=== PATIENT | female | born 1950 | race Caucasian/White ===

== ENCOUNTER → 2018-11-28 15:09 | Outpatient (CLI) | payer MEDICARE, OTHER, SELFPAY ==
[2017-04-07 23:59] VITALS: BMI 23.5
--- NOTE | 2018-11-28 16:00 | RAD_ITS ---
STUDY: X-RAY CHEST REASON FOR EXAM: Female, 67 years old. Cough TECHNIQUE: PA and lateral views of the chest COMPARISON: X-Ray Chest April 08, 2017 FINDINGS: Left chest tunneled catheter is present terminating at the cavoatrial junction. Mild right greater than left lower lung zone infiltrates are present. There is a moderate right effusion which appears loculated. There is a small to moderate left effusion. There is no pneumothorax. The heart is normal in size. The visualized osseous structures are within normal limits. RAD/Chest PA and Lateral IMPRESSION: Right greater left lower lung zone infiltrates with moderate right effusion which appears loculated, and small to moderate left effusion. Electronically Signed: Arnol Ruvalcaba, at 16:30 EDT Tel , Service support ,
== END ==
PROVIDERS: Family Provider Family Medicine; PCP Family Medicine; Referring Provider Family Medicine; Visit Provider Family Medicine
DX: R05 Cough (principal); R50.9 Fever, unspecified
CPT/HCPCS: 71046

== ENCOUNTER 2019-03-25 16:34 | Observation (INO) | payer MEDICARE, OTHER, SELFPAY ==
[2017-04-07 23:59] VITALS: BMI 23.5
[2019-03-25] VITALS (15 sets, daily range): BP systolic 172–216; BP diastolic 83–111; PULSE 77–107; RESP 17–26; TEMP 36.8–37; O2SAT 87–98; BMI 21.9; BMI 21.6; BMI 21.0
--- NOTE | 2019-03-25 16:57 | CT_ITS ---
STUDY: CTA CHEST REASON FOR EXAM: Female, 68 years old. Hypoxia. Shortness of breath. Current lung cancer with chemotherapy 12 days ago. History of bilateral breast cancer. RADIATION DOSAGE (If Supplied By Facility): CTDIvol = ( 5.82 ) mGy, DLP = ( 238.05 ) mGycm TECHNIQUE: The examination was performed with the intravenous administration of IV 75mL Isovue-370 75ML. Post-processing of the angiographic images was performed, with multiplanar reformation and 3D reconstruction. Individualized dose optimization techniques were used for this CT. COMPARISON: None. FINDINGS: Left jugular Port-A-Cath with its catheter tip in the superior vena cava. Normal enhancement of the main pulmonary artery and right and left pulmonary arteries. Normal enhancement of the bilateral peripheral pulmonary arteries. There is no demonstrated pulmonary embolism. Normal thoracic aorta and visualized great vessels. There is no demonstrated aortic dissection. Normal heart and pericardium. There are calcifications of the coronary arteries. Normal mediastinum. Normal hilar regions. Normal visualized trachea and bronchi. The lungs are well expanded. There is a large left pleural effusion with atelectatic change is of the left lower lobe. Atelectatic changes of the lingula are also noted. The possibility of underlying mass cannot be ruled out. There is a vague infiltrate laterally in the left upper lobe. There are multiple nodular densities throughout the right lung. The largest, in the left lower lobe is pleural-based and measures 3.2 x 2.0 x 3.1 cm. There is a small right pleural effusion with subsegmental atelectasis. There are soft tissue densities in both breasts. No visualized axillary lymphadenopathy. The chest wall soft tissues are otherwise unremarkable. There is no visualized fracture. There are degenerative changes of the thoracolumbar spine. There are sclerotic foci in the left lateral 10th rib and a linear distribution. No other areas of sclerosis are noted. Normal visualized upper abdomen. CT/CTA Chest W/WO Contrast IMPRESSION: 1. No evidence of pulmonary embolus. 2. No aortic dissection or aneurysm. 3. Large left pleural effusion and with lingular and lower lobe atelectasis. 4. Patchy infiltrate in the left upper lobe. 5. Multiple nodular densities throughout the right lung with small pleural effusion. 6. Linear array of sclerosis along the left 10th rib of uncertain important etiology. No other evidence of sclerotic or lytic lesions are seen. Electronically Signed: Kd Nieves DO at 18:50 EST Tel [phone], Service support ,
--- NOTE | 2019-03-25 16:58 | EKG12_ITS ---
Test Reason : SOB Blood Pressure : / mmHG Vent. Rate : 097 BPM Atrial Rate : 097 BPM P-R Int : 128 ms QRS Dur : 080 ms QT Int : 336 ms P-R-T Axes : 034 022 088 degrees QTc Int : 426 ms Normal sinus rhythm Minimal voltage criteria for LVH, may be normal variant Nonspecific T wave abnormality Abnormal ECG Confirmed by NIRANJAN CUNNINGHAM, DILIA ([id number]), marketing editor EVERARDO CLARK ([id number]) on 03/31/2019 2:19:05 PM Referred By: Poonam Haq Confirmed By:DILIA UREÑA MD
[2019-03-25 17:22] LABS: Absolute Lymphocyte Count 0.77 X10^3/uL (0.83-4.51); Absolute Neutrophil Count 1.6 X10^3/uL (2.0-7.7); Basophil# 0.04 X10^3/uL; Basophil% 1.2 % (0-1); Eosinophil# 0.03 X10^3/uL; Eosinophils% 0.9 % (0-5); Hematocrit 39.1 % (37-47); Hemoglobin 12.7 g/dL (12.0-15.0); Lymphocyte # 0.77 X10^3/ul (4.0); Lymphocyte % 22.4 % (19-41); Mean Corp Hgb Conc 32.5 g/dL (32-36); Mean Corpuscular Hgb 28.7 pg (27.0-32.0); Mean Corpuscular Volume 88.3 fL (81-99); Mean Platelet Vol. 9.4 fl (6.2-12.0); Monocyte# 0.99 X10^3/uL; Monocyte% 28.8 % (0-10); NRBC Flagged by Analyzer 0 % (0-5); Neutrophil % 46.4 % (47-70); Platelet Count 285 K/mm3 (150-450); RBC Distribution Width CV 15.9 % (11.6-14.6); RBC Distribution Width SD 51.1 fl (35.1-43.9); Red Blood Count 4.43 M/mm3 (4.2-5.4); White Blood Count 3.4 K/mm3 (4.4-11.0)
[2019-03-25 17:44] LABS: Anion Gap 5 (5-15); BUN 17 mg/dL (7-18); BUN/Creat Ratio 25.6 RATIO (10-20); Chloride 103 mmol/L (98-107); Creatinine, Serum 0.66 mg/dL (0.55-1.02); EST Glomerular Filtration Rate 93 mL/min (>60); Est Glom Filt Rate - Afr Amer 113 mL/min (>60); Glucose 102 mg/dL (74-106); Potassium 3.9 mmol/L (3.5-5.1); Sodium Level 136 mmol/L (136-145)
[2019-03-25] MEDS: 0.9% Normal Saline 1,000 ML 150 ML IV (17:45)
--- NOTE | 2019-03-25 17:47 | HP.PCM_ITS ---
Problem List (1) Hypoxia Status: Acute (2) Exertional dyspnea Status: Acute (3) Breast cancer Status: Chronic Qualifiers: Laterality: bilateral (4) Heart murmur, systolic Status: Chronic Comment: Suspect aortic valve murmur (5) Hypertension Status: Chronic Qualifiers: Hypertension type: essential hypertension Qualified Code(s): I10 - Essential (primary) hypertension (6) Thrombocytopenia Status: Chronic History of Present Illness Date of Admission: 03/25/19 Chief Complaint: Dyspnea, increased, hypoxia The patient is a 68 y/o F w/ PMHx: HTN, Chronic Thrombocytopenia, Valvular Heart Disease, Known Breast Cancer and Lung CA with ongoing Chemotherapy w/ Chronic dry cough, last 12 days prior, following w/ Oncology in [place] who presents to the [facility] ED on 03/25/19 with history of progressively worsening dyspnea, especially with any exertional attempts requiring her to drive to her mailbox instead of walk starting this past Saturday with ongoing stable chronic dry cough unchanged from prior with no recent URI symptoms, denied fevers or chills prompting ED presentation. Work-up in the ED included T 98.3, heart rate 107, BP 194/108, respiratory rate 26, initially 87% with improvement to 95% on 2 L nasal cannula, CBC with WBC 3.4, hemoglobin 12.7, platelet 285 with no obvious left shift, unremarkable BMP, troponin less than 0.015, CTPA obtained per ED secondary to concerns for possible PE given history and pending at the time of evaluation as patient initially very reticent to have this performed but following discussions with hospitalist physician was amenable to having this testing obtained. In the ED patient administered normal saline. Discussed possible findings of CT with patient, i.e. effusion versus acute pulmonary embolus with possible interventions including thoracenteses and anticoagulant therapy if needed. Past Medical History Past Medical History (Chronic Problems): Chronic Problems Breast cancer (Chronic) Hypertension (Chronic) Heart murmur, systolic (Chronic) Suspect aortic valve murmur Thrombocytopenia (Chronic) Allergies amoxicillin Allergy (Verified 03/25/19 16:38) Rash clavulanic acid Allergy (Verified 03/25/19 16:38) Rash Home Medications: Ambulatory Orders Medication Instructions Recorded Cholecalciferol (VIT D3) [Vitamin 2,000 unit PO DAILY 01/13/16 D3] Lisinopril 20 mg PO DAILY 01/13/16 Metoprolol Tartrate [Lopressor 25 mg PO BID #60 tablet 08/26/16 (beta humberto)] Ubidecarenone [Co Q-10] 10 mg PO DAILY 04/07/17 Vit B Comp No.3/Folic/C/Biotin 1 each PO DAILY 04/07/17 [Acquisition Marketing Coordinator-Yayo Rx Tablet] Vancomycin [Vancocin] 125 mg PO Q6H #56 capsule 04/09/17 Surgical History: - - Port placement. Psychiatric History: No pertinent psych hx PRESERVATIONIST History: No pertinent PRESERVATIONIST history Lives: Alone Smoking Status: Never smoker Tobacco Use: Non-smoker Alcohol: None Drugs: None - *Family History Maternal History Items: Hypertension Paternal History Items: Heart Disease Sibling History Items: Cancer - sister with breast CA Review of Systems Constitutional: Reports: Malaise, Weakness, Fatigue. Denies: Anorexia, Chills, Fever, Weight Change HEENT: Denies: Head Aches, Sinus Congestion, Sinus Drainage Cardiovascular: Denies: Chest Pain, Chest Pressure, Chest Tightness, Heaviness, Light Headedness, Orthopnea, Palpitations, Syncope Respiratory: Reports: Cough, Shortness of Breath, Shortness of breath at rest, Shortness of breath upon exertion. Denies: Sputum production, Wheezing Gastrointestinal: Denies: Abdominal Pain, Nausea, Vomiting Genitourinary: Denies: Dysuria Musculoskeletal: Reports: Joint Pain. Denies: Joint Tenderness Skin: Denies: Rash, Wounds Neurological: Denies: Numbness, Tingling, Focal weakness Psychiatric: Denies: Anxiety, Depression, Homicidal Ideations, Suicidal Ideations Hematologic/ Lymphatic: Reports: Easy Bruising, Easy Bleeding VTE Information - Inpt Only VTE Present on Admission: No VTE Mechan Device Prophylaxis: SCD's VTE Pharm Prophylaxis ordered?: Yes Patient Problems: Active and Suspected Problems Hypoxia (Acute) Exertional dyspnea (Acute) Subjective: Patient seated upright in ED bed, denies any acute complaints at this time, denies chest pain, notes dyspnea primarily with exertion. Objective: Physical Examination: General: awake, alert, oriented x 3 and cooperative, seated upright in the ED bed, no acute distress, notes improved with oxygen supplementation. Skin: normal color, turgor, no icterus, cyanosis. HEENT: AT/NC, EOMI, PERRLA, mildly dry MM, no carotid bruits or JVD noted. Lungs: Diminished breath sounds, greater bilateral bases, mild effort, no obvious rales, rhonchi or wheezing. Heart: Regular rate and rhythm; no gallop, rub audible, notable SM. Abdomen: soft, NTTP, ND, normal BS, no HSM. Extremities: no cyanosis, clubbing, or edema. Neurological: patient awake, alert, oriented x 3; cognitive function intact; pupils equally reactive to light and accomodation; cranial nerves II-XII grossly normal, moving all 4 extremities, no focal deficits, strength moderately to severely global decrease secondary to acute presentation with hypoxia with exertion. Psychiatric: affect appears fatigued, no acute evidence of depressive or anxiety feelings. - Physical Exam Vitals/I&O's: Vital Signs Temp Pulse Resp BP Pulse Ox 98.3 F 94 20 H 172/101 H 95 03/25/19 16:35 03/25/19 17:46 03/25/19 17:46 03/25/19 17:46 03/25/19 17:46 Oxygen Flow Rate (L/min) 2 Oxygen Delivery Method Nasal Cannula Weight: 128 lb Body Mass Index (BMI) 21.9 Laboratory Results 03/25/19 17:10: WBC 3.4 L, RBC 4.43, Hgb 12.7, Hct 39.1, MCV 88.3, MCH 28.7, MCHC 32.5, RDW Std Deviation 51.1 H, RDW Coeff of Justice 15.9 H, Plt Count 285, MPV 9.4, Immature Gran % (Auto) 0.300, Neut % (Auto) 46.4 L, Lymph % (Auto) 22.4, Beauregard % (Auto) 28.8 H, Eos % (Auto) 0.9, Baso % (Auto) 1.2 H, Absolute Neuts (auto) 1.6 L, Absolute Lymphs (auto) 0.77 L, Nucleated RBC % 0 03/25/19 17:10: Sodium 136, Potassium 3.9, Chloride 103, Carbon Dioxide 28.0, Anion Gap 5, BUN 17, Creatinine 0.66, Estim Creat Clear Calc 45.20, Est GFR (MDRD) Af Amer 113, Est GFR (MDRD) Non-Af 93, BUN/Creatinine Ratio 25.6 H, Glucose 102, Calcium 9.0, Troponin I < 0.015 Current Medications Sodium Chloride () 1,000 mls @ 150 mls/hr IV .Q6H40M COUNTS INCLUDE 234 BEDS AT THE [facility] Last Admin: 03/25/19 17:45 Dose: 150 mls/hr Documented by: Assessment/Plan All Active Problems Hypoxia (Acute) Exertional dyspnea (Acute) Cellulitis (Ruled-out) Pneumonia (Ruled-out) Fever (Acute) CAP (community acquired pneumonia) (Ruled-out) C. difficile diarrhea (Acute) The patient is a 68 y/o F w/ PMHx: HTN, Chronic Thrombocytopenia, Valvular Heart Disease, Known Breast Cancer and Lung CA with ongoing Chemotherapy w/ Chronic dry cough, last 12 days prior, following w/ Oncology in [place] who presents to the [facility] ED on 03/25/19 with history of progressively worsening dyspnea, especially with any exertional attempts requiring her to drive to her mailbox instead of walk starting this past Saturday with ongoing stable chronic dry cough unchanged from prior. (1) Exertional dyspnea, hypoxia, unclear specific etiology: Patient with onset dyspnea, worse with exertion starting this prior Saturday with no concurrent URI symptoms nor chest pain. Work-up in the ED included T 98.3, heart rate 107, BP 194/108, respiratory rate 26, initially 87% with improvement to 95% on 2 L nasal cannula, CBC with WBC 3.4, hemoglobin 12.7, platelet 285 with no obvious left shift, unremarkable BMP, troponin less than 0.015, CTPA obtained per ED secondary to concerns for possible PE given history and pending at the time of evaluation as patient initially very reticent to have this performed but following discussions with hospitalist physician was amenable to having this testing obtained. Will admit to the PCU, maintain on telemetry, awaiting CTPA results, maintain on oxygen with wean as tolerated to room air although suspect may need oxygenation testing with discharge to home on supplementation, continue ATC duonebs, PRN albuterol, HOB, IS parameters. If CTPA notable for acute pulmonary embolism will initiate therapeutic Lovenox. If notable pleural effusion as examination with no rales, crackles but diminished bilateral bases with mild effort would plan request for thoracentesis with coags to be obtained and hold on chemoprophylaxis. (2) Known breast cancer and lung cancer: Patient with ongoing chemotherapy, last 12 days prior, on 2 agents, following with oncology in [place], magnesium and phosphorus pending, patient notes she had plan to follow-up this coming Saturday in [place] and is eager to be able to discharge in time to make this visit. (3) Hypertension: Continue home regimen including lisinopril, metoprolol, PRN hydralazine. (4) Valvular heart disease: Suspected with routine ECHO, none noted in [facility]. (5) History C. difficile: Prior history, if any antibiotic therapy necessity presents with plan on initiation of aggressive lactobacillus regimen concurrently. (6) Chronic thrombocytopenia: Admission platelet 285, prior admissions with platelets 90-150, will trend. (7) DVT Prophylaxis: SCDs, Lovenox pending CT chest results and if evidence of pulmonary emboli will transition to therapeutic Lovenox, will defer immediately upon current presentation as may need thoracentesis. (8) CODE status: Patient notes that her son in [place] is her healthcare power of civil attorney. She notes that she has a will but not sure if she has a living will. Encouraged her to set up a living will. Discussed CODE status at length including difference between FULL code, DNR-CCA and DNR-CC status. Following discussions about the differences in these status, requested Full Code status. Advanced Care Planning Face to Face Time: 16 minutes. Code Visit OBSV E&M: 97171 Initial observation care L3 Procedures: 09433 Advncd Care Plan 30 Min
--- NOTE | 2019-03-25 18:36 | ED.VIS.DYS ---
History of Present Illness Informant: Patient Onset: Days - 12 days Activity at onset: Exertion, Light Activity Timing: Continuous Quality: Dyspnea on exertion Current Severity: Severe Maximum Severity: Severe Worsened by: Exertion Relieved by: Nothing Associated Symptoms: Cough Chest Pain: None Narrative: 68-year-old female currently being treated with chemotherapy for breast cancer and lung cancer presents with 12 days of dry nonproductive cough and worsening dyspnea on exertion. It got to the point today where she had to drive herself to get her mail because she feels short of breath with just taking several steps across her home. She has not had hemoptysis or fever. No chest pain. No vomiting or diarrhea. No lightheadedness or dizziness. Last chemotherapy 12 days ago. She receives her treatment for cancer in [place]. No leg pain or swelling. No orthopnea. PE Risk Factors: Cancer Prior similar symptoms: Yes Recent Illness/Hospitalization: Yes <Fransisco Khalil - Last Filed: 03/25/19 18:36> <Jacqueline Oviedo - Last Filed: 03/25/19 19:57> Chief Complaint: Shortness of Breath Past Medical History Prior records reviewed: Yes Past Medical History: - - breast cancer and lung cancer, HTN, thrombocytopenia Surgical History: - - Port placement. Lives: Alone Smoking Status: Never smoker Alcohol: None Drugs: None - Family History Maternal Family History: Reports: Hypertension Paternal Family History: Reports: Heart Disease Sibling Family History: Reports: Cancer - sister with breast CA <Fransisco Khalil - Last Filed: 03/25/19 18:36> <Jacqueline Oviedo - Last Filed: 03/25/19 19:57> - Allergies and Home Meds Allergies/Adverse Reactions: Allergies amoxicillin Allergy (Verified 03/25/19 16:38) Rash clavulanic acid Allergy (Verified 03/25/19 16:38) Rash Review of Systems All systems negative except as indicated General: Denies: Chills, Fever Eyes: Denies: Visual changes - bilaterally, Diplopia ENT: Denies: Bilateral ear pain, Sore throat Cardiovascular: Denies: Chest pain Respiratory: Reports: Dyspnea, Cough, Dyspnea on exertion. Denies: Sputum, Orthopnea, Paroxysmal nocturnal dyspnea Gastrointestinal: Denies: Abdominal pain, Nausea, Vomiting Genitourinary: Denies: Dysuria, Hematuria Musculoskeletal: Denies: Myalgias, Arthralgias Skin: Denies: Rash, Abscess Neurological: Denies: Headache, Weakness, Parasthesia <Fransisco Khalil - Last Filed: 03/25/19 18:36> Physical Exam Vital Signs/Narrative: Vital Signs Temp Pulse Resp BP Pulse Ox 03/25/19 18:35 101 H 209/98 H 97 03/25/19 18:34 102 H 216/108 H 97 03/25/19 18:04 92 17 216/111 H 96 03/25/19 17:46 94 20 H 172/101 H 95 03/25/19 17:18 95 03/25/19 16:49 103 H 21 H 95 03/25/19 16:35 98.3 F 107 H 26 H 194/108 H 87 Inital Vital Signs reviewed: Yes General: Well nourished, Well developed, No Acute Distress Head: Normocephalic, Atraumatic Eyes: Perrl, EOMI ENT: Moist mucous membranes Neck: Supple, Nontender, No lymphadenopathy, No JVD Cardiovascular: Regular rhythm, Tachycardia, Murmur Respiratory: No distress, Chest nontender, Diminished Abdomen: Soft, Nontender, Nondistended, Normal bowel sounds, No masses Back: Nontender, Normal Inspection Extremities: Nontender, No edema Skin: Normal color, No rash Neurological: Alert, Oriented x3 Psychological: Normal affect <Fransisco Khalil - Last Filed: 03/25/19 18:36> Vital Signs/Narrative: Vital Signs Temp Pulse Resp BP Pulse Ox 03/25/19 18:04 92 17 216/111 H 96 03/25/19 17:46 94 20 H 172/101 H 95 03/25/19 17:18 95 03/25/19 16:49 103 H 21 H 95 03/25/19 16:35 98.3 F 107 H 26 H 194/108 H 87 <Jacqueline Oviedo - Last Filed: 03/25/19 19:57> Diagnostic/Tx/Re-eval CTA PE Study: No Evidence of PE, No Evidence of Dissection - Rhythm Strip Rhythm Strip: Sinus Tach Rate: 111 Ectopy: None - EKG Initial EKG Interpretation: No Acute Injury Pattern, Sinus Tachycardia Prior: Unchanged Treatment - Dyspnea: Oxygen Repeat Evaluation: No change With Ambulation: Desaturation - Medical Decision Making On arrival patient's pulse ox is between 80 and 85% on room air. She was placed on 3 L nasal cannula with improvement to 95%. EKG showed no signs of acute ischemia, sinus tachycardia. Patient's laboratory work-up was unremarkable. Because of the patient's hypoxia and tachycardia with dyspnea and active cancer concern for pulmonary embolism therefore CT of the chest was obtained. This showed no pulmonary embolism but a large pleural effusion. At this time we do feel that that is the cause of the patient's symptoms and she will require admission for further treatment and likely thoracentesis. Dr. Haq agreed to admit the patient and patient remains hemodynamically stable. <Fransisco Khalil - Last Filed: 03/25/19 18:36> - Medical Decision Making I independently evaluated the patient. She arrived with dyspnea on exertion and hypoxia. History of breast and lung cancer. She denies chest pain. She is concerned about fluid overload. CTA chest was ordered to rule out PE. This shows no evidence of PE, large left pleural effusion. Patient was discussed with the hospitalist for admission. <Jacqueline Oviedo - Last Filed: 03/25/19 19:57> ED Disposition <Fransisco Khalil - Last Filed: 03/25/19 18:36> <Jacqueline Oviedo - Last Filed: 03/25/19 19:57> - Plan for ED Patient: Disposition: Acute Care Hospital [facility] Diagnosis: Exertional dyspnea, Hypoxia, Lung cancer, Breast cancer, Thrombocytopenia, Pleural effusion
[2019-03-25 20:15] LABS: ALB/GLOB Ratio 0.7 RATIO (0.9-2.4); Globulin 4.7 g/dL (2.2-4.2); LDH 260 U/L (84-246); Magnesium 1.9 mg/dL (1.6-2.6); Protein, Total 7.8 g/dL (6.4-8.2)
[2019-03-25 20:20] LABS: Phosphorus 3.9 mg/dL (2.5-4.9)
[2019-03-25] MEDS: 0.9% Normal Saline 1,000 ML 125 ML IV (20:34)
[2019-03-25] MEDS: Metoprolol Tartrate 25 MG Tablet PO ×2 (20:36→22:43)
[2019-03-25] MEDS: Lisinopril 20 MG Tablet PO (20:36)
[2019-03-26] VITALS (16 sets, daily range): BP systolic 115–175; BP diastolic 55–85; PULSE 67–86; RESP 16–24; TEMP 36.6–36.9; O2SAT 93–98
--- NOTE | 2019-03-26 | FLU_PTH ---
PATIENT: RANULFO VIDAL LOC: [facility] U#:[id number] AGE/SX: 68/F ROOM: [facility] RE03/25/[address]: Dr. Sola Marquez MD : 1950 BED: 1 DIS: 03/27/2019 SPEC #: [id number] RECD: 03/26/19 13:53 STATUS: YAMIL REYuri #: [id number] TONY: 03/26/19 00:[address]: Sola Marquez DEPT: CYTOLOGY RECD BY: Weston Olivares ENTERED: 03/26/19 13:54 SP TYPE: Fluid OTHR DR: MD Dr. Jatin Wilkins MD Tissues: THORACIC FLUID Procedures: Special Stain Group II Surgery Specimen Level IV Cytospin Fluid HEADER OPERATION: Ultrasound-guided thoracentesis PRE-OP DIAGNOSIS: Left pleural effusion TISSUE SUBMITTED: Thoracentesis fluid for cytology DIAGNOSIS CYTOLOGY Thoracentesis fluid for cytology (cytospin and cell block): Positive for malignant cells consistent with metastatic carcinoma. See comment. AM:ayesha 03/27/19 COMMENT Immunohistochemistry ([id number]) supports the above diagnosis. The study does not favor a particular primary. Clinical correlation is suggested. Case has been reviewed in consultation with Dr. Lopez who concurs with the above diagnosis. IDC:SJ CYTOLOGY STUDY Slides are reviewed. CYTOLOGY GROSS Received is 90 ml of red cloudy fluid labeled with the patient's name and and designated per the requisition as thoracentesis. Submitted for cytology preparation including cell block. / ayesha 03/26/19 TC:0 CPT: 54209, 22676
--- NOTE | 2019-03-26 | IMM_PTH ---
PATIENT: RANULFO VIDAL LOC: [facility] U#:[id number] AGE/SX: 68/F ROOM: [facility] RE03/25/[address]: Dr. Sola Marquez MD : 1950 BED: 1 DIS: 03/27/2019 SPEC #: [id number] RECD: 03/27/19 11:06 STATUS: YAMIL REQ #: [id number] TONY: 03/26/19 00:[address]: Sola Marquze DEPT: IMMUNOHISTOCHEMISTRY RECD BY: Amanda Cabrera ENTERED: 03/27/19 11:08 SP TYPE: IMMUNO OTHR DR: MD Dr. Jatin Wilkins MD Tissues: THORACIC FLUID Procedures: Synapto (add) NAPSIN A (add) Cristobal Ret (add) CD56 (add) CEA (add) CHROMO (add) CK20 (add) CK5-6 (add) CK7 (add) CK8 (add) HER2 THALIA (add) KI-67 (add) MAMM (add) P53 (add) KS (add) TTF1 (add) Vimentin (add) GATA3 (add) P40 (add) ER (initial) NSE (add) PHYSICIAN & INSTITUTION [place] [id number] SPECIMEN INFORMATION: Tissue Source: Thoracentesis fluid Clinical Info: Left pleural effusion Specimen Number: [id number] CPT code: 42867, 21600 x20 METHODOLOGY: Deparaffinized sections of prefer/formalin-fixed tissue or PAP/DQ stained slides are incubated with monoclonal/polyclonal antibodies/oligonucleotide probes. Localization is made via biotin free immunoperoxidase method. Appropriate controls are performed and reacted as expected. Results on target cell population are indicated in the following table: RESULTS: ANTIBODY / CLONE RESULT ER (6F11) negative KS (1E2) negative Her-2neu (CB11) negative Mammaglobin (31A5) negative GATA3 (L50-823) positive CK7 (OV-TL12/30) positive CK8 (40snkvV59) positive CK20 (KS20.8) negative TTF-1 (8G7G3/1) negative Napsin A (Rabbit Polyclonal) negative P53 (DO-7) positive Ki-67 (30-9) positive CK5-6 (D5 & 1684) negative P40 (BC28) negative Chromo (LK2H10) negative Synapto (polyclonal) negative NSE Neuron Specific Enolase negative CEA (11-7/TF-3HB-1) negative CD56 (123C3.D5) negative CALRET (polyclonal) negative Vimentin (V9) negative These tests were developed and their performance characteristics determined by [facility]. They may not have been cleared or approved by the U.S. Food and Drug Administration. The FDA has determined that such clearance or approval is not necessary. The above immunohistochemical/dualISH markers are ordered and reviewed by the Pathologist. INTERPRETATION: Thoracentesis fluid: Metastatic carcinoma. AM:ayesha 03/30/19 Comment: The study does not favor a specific primary. Clinical correlation is necessary.
[2019-03-26] MEDS: 0.9% Normal Saline 1,000 ML 125 ML IV ×3 (04:18→21:47)
[2019-03-26 04:22] LABS: Absolute Lymphocyte Count 0.87 X10^3/uL (0.83-4.51); Basophil# 0.02 X10^3/uL; Basophil% 0.7 % (0-1); Eosinophil# 0.07 X10^3/uL; Eosinophils% 2.4 % (0-5); Hematocrit 35.3 % (37-47); Hemoglobin 11.4 g/dL (12.0-15.0); Lymphocyte # 0.87 X10^3/ul (4.0); Lymphocyte % 30.4 % (19-41); Mean Corp Hgb Conc 32.3 g/dL (32-36); Mean Corpuscular Hgb 28.8 pg (27.0-32.0); Mean Corpuscular Volume 89.1 fL (81-99); Mean Platelet Vol. 9.5 fl (6.2-12.0); Monocyte# 0.86 X10^3/uL; Monocyte% 30.1 % (0-10); NRBC Flagged by Analyzer 0 % (0-5); Neutrophil # 1.02 X10^3/uL (2.7-7.7); Neutrophil % 35.7 % (47-70); Platelet Count 257 K/mm3 (150-450); RBC Distribution Width CV 15.9 % (11.6-14.6); RBC Distribution Width SD 51.3 fl (35.1-43.9); Red Blood Count 3.96 M/mm3 (4.2-5.4); White Blood Count 2.9 K/mm3 (4.4-11.0)
[2019-03-26 04:29] LABS: International Normalized Ratio 1.1
[2019-03-26 04:30] LABS: Partial Thromboplast Time 30.9 Seconds (24.1-36.2)
[2019-03-26 04:40] LABS: Anion Gap 8 (5-15); BUN 11 mg/dL (7-18); BUN/Creat Ratio 19.6 RATIO (10-20); Calcium,Total 8.4 mg/dL (8.5-10.1); Chloride 107 mmol/L (98-107); Creatinine, Serum 0.56 mg/dL (0.55-1.02); EST Glomerular Filtration Rate 113 mL/min (>60); Est Glom Filt Rate - Afr Amer 137 mL/min (>60); Glucose 86 mg/dL (74-106); Potassium 3.6 mmol/L (3.5-5.1); Sodium Level 140 mmol/L (136-145)
--- NOTE | 2019-03-26 05:55 | EKG12_ITS ---
Test Reason : AM EKG Blood Pressure : / mmHG Vent. Rate : 074 BPM Atrial Rate : 074 BPM P-R Int : 144 ms QRS Dur : 084 ms QT Int : 418 ms P-R-T Axes : 033 022 072 degrees QTc Int : 463 ms Normal sinus rhythm Nonspecific T wave abnormality Abnormal ECG When compared with ECG of 25-MAR-2019 17:12, MANUAL COMPARISON REQUIRED, DATA IS UNCONFIRMED Confirmed by KIA JAIN ([id number]), assistant film editor SHASHA GARZON ([id number]) on 04/03/2019 11:29:44 AM Referred By: Poonam Haq Confirmed By:KIA JAIN
[2019-03-26] MEDS: Ipratropium/Albuterol Sulfate 3 ML AMPUL.NEB INHALATION ×2 (07:32→19:36)
[2019-03-26] MEDS: Lisinopril 20 MG Tablet PO (09:40)
[2019-03-26] MEDS: Metoprolol Tartrate 25 MG Tablet PO ×2 (09:40→21:05)
--- NOTE | 2019-03-26 13:00 | RAD_ITS ---
STUDY: X-RAY CHEST REASON FOR EXAM: Female, 68 years old. Post left thoracentesis. TECHNIQUE: AP inspiration and expiration views. COMPARISON: Comparison is made with prior study dated November 28, 2018. FINDINGS: EKG electrodes are seen. The patient is status post left thoracentesis. There is no evidence of pneumothorax. Residual pleural-parenchymal changes persist. RAD/Chest Insp/Exp 2 View IMPRESSION: Status post left thoracentesis. There is no evidence of pneumothorax. Electronically Signed: Modesto Meade, at 14:27 EST , Service support ,
--- NOTE | 2019-03-26 13:30 | CASEMGMT ---
Patient has a Healthcare Power of Brick Catcher and a Healthcare Living Will. She is aware they are not on file. She does not have anyone that is able to bring them to the hospital. Melly ROMEO
[2019-03-26] MEDS: 0.9% Saline Lock 10 ML Syringe IV (13:35)
[2019-03-26] MEDS: Ondansetron 4 MG/2 ML Vial IV (13:35)
[2019-03-26 13:36] LABS: Cytology, Body Fluid / CSF SEE PATHOLOGY REPORT
[2019-03-26 14:12] LABS: Glucose, Body Fluid 66 mg/dL (40-70); LDH,Body Fluid 551 Units/l (Not Establ.)
[2019-03-26 14:17] LABS: Protein, Body Fluid 5.1 g/dL (Not Establ.)
--- NOTE | 2019-03-26 14:37 | PCM.PN.HOSP ---
Patient Problems: Active and Suspected Problems Hypoxia (Acute) Exertional dyspnea (Acute) Lung cancer (Acute) Pleural effusion (Acute) Subjective: Patient seen and examined. She was admitted with a complaint of acute onset shortness of breath and was found to have a large left-sided pleural effusion. Patient had complaints this morning. Shortness of breath had improved I must be stated she was on 2 L of oxygen with her normal being on room air. She denied any chest pain palpitations, dizziness, diarrhea vomiting. Patient has a history of metastatic breast cancer and is currently undergoing chemotherapy. She goes to the [facility] in [place] because her 2 sons live in [place] and her oncologist is Dr. Rhonda Fallon. Patient expressed some dissatisfaction with the fact that she was having a thoracentesis here as she preferred to have all her follow-up done at the [facility]. Hospitalist spoke to patient's oncologist Dr. Mcmanus on phone. Dr. umanzor was stated that she had wanted patient to come down in [place] yesterday as plan was to have a Pleurx catheter put in for the malignant pleural effusion. Patient however refused and eventually ended up at [facility] ED. Dr. Mcmanus will fax over patient's medical records and stated that she was okay with following patient up after she had thoracentesis here. Patient is due for chemotherapy tomorrow but oncologist and patient were advised that patient would only be discharged contingent on how well she felt associated thoracentesis. Labs and vitals reviewed. Vitals/I&O's: Vital Signs Temp Pulse Resp BP Pulse Ox 97.9 F 67 18 123/78 H 96 03/26/19 13:32 03/26/19 13:32 03/26/19 13:32 03/26/19 13:32 03/26/19 13:32 Oxygen Flow Rate (L/min) [5] 2 Oxygen Flow Rate (L/min) [4] 2 Oxygen Flow Rate (L/min) [3] 2 Oxygen Flow Rate (L/min) [2] 2 Oxygen Flow Rate (L/min) [1 ( 2 Initial Baseline)] Oxygen Flow Rate (L/min) 2 Oxygen Delivery Method [5] Nasal Cannula Oxygen Delivery Method [4] Nasal Cannula Oxygen Delivery Method [3] Nasal Cannula Oxygen Delivery Method [2] Nasal Cannula Oxygen Delivery Method [1 ( Nasal Cannula Initial Baseline)] Oxygen Delivery Method Nasal Cannula Weight: 125 lb 14.143 oz Body Mass Index (BMI) 21.6 Intake and Output for Last 24 Hours 03/24/19 03/25/19 03/26/19 23:59 23:59 23:59 Intake Total 1000 / 1000 2496.67 / 2496.67 Balance 1000 / 1000 2496.67 / 2496.67 General: Alert, Oriented x3, Cooperative, No apparent distress HEENT: Atraumatic, PERRLA, EOMI, Normocephalic Oral: Dry Mucosa Neck: Supple, No JVD, Negative Carotid Bruits, Negative Hepatojugular Reflux, No Nodes Lungs: - - Decreased breath sounds bibasilarly and in mid lung mars. No wheezes or crackles. Cardiovascular: Regular rate, Regular Rhythm, Normal S1, Normal S2, No murmurs Abdomen: Bowel Sounds Present, Soft, Non Tender, Non-Distended, No Hepato-splenomegaly Extremities: No clubbing, No cyanosis, No edema, Capillary Refill Less than 3 Seconds Skin: No rashes, No breakdown Musculoskeletal: No Tenderness to Palpation of Joints or Extremities, - - has right sided chemotherapy port in place on chest Lymphatic: No Cervical, Supraclavicular, or Inguinal Adenopathy Neurological: Cranial nerves II-XII grossly intact, Neuro grossly intact, Motor Exam 5/5 strength throughout Psych/Mental Status: Normal Affect, Appropriate, Alert and oriented to time, place, person, mood and affect Laboratory Results 03/25/19 17:10: WBC 3.4 L, RBC 4.43, Hgb 12.7, Hct 39.1, MCV 88.3, MCH 28.7, MCHC 32.5, RDW Std Deviation 51.1 H, RDW Coeff of Justice 15.9 H, Plt Count 285, MPV 9.4, Immature Gran % (Auto) 0.300, Neut % (Auto) 46.4 L, Lymph % (Auto) 22.4, [place] % (Auto) 28.8 H, Eos % (Auto) 0.9, Baso % (Auto) 1.2 H, Absolute Neuts (auto) 1.6 L, Absolute Lymphs (auto) 0.77 L, Nucleated RBC % 0 03/25/19 17:10: Sodium 136, Potassium 3.9, Chloride 103, Carbon Dioxide 28.0, Anion Gap 5, BUN 17, Creatinine 0.66, Estim Creat Clear Calc 45.20, Est GFR (MDRD) Af Amer 113, Est GFR (MDRD) Non-Af 93, BUN/Creatinine Ratio 25.6 H, Glucose 102, Calcium 9.0, Troponin I < 0.015 03/25/19 17:10: Magnesium 1.9, Lactate Dehydrogenase 260 H, Total Protein 7.8, Globulin 4.7 H, Albumin/Globulin Ratio 0.7 L 03/25/19 17:10: Phosphorus 3.9 03/26/19 01:40: Troponin I < 0.015 03/26/19 04:01: WBC 2.9 L, RBC 3.96 L, Hgb 11.4 L, Hct 35.3 L, MCV 89.1, MCH 28.8, MCHC 32.3, RDW Std Deviation 51.3 H, RDW Coeff of Justice 15.9 H, Plt Count 257, MPV 9.5, Immature Gran % (Auto) 0.700, Neut % (Auto) 35.7 L, Lymph % (Auto) 30.4, [place] % (Auto) 30.1 H, Eos % (Auto) 2.4, Baso % (Auto) 0.7, Absolute Neuts (auto) 1.0 L, Absolute Lymphs (auto) 0.87, Nucleated RBC % 0 03/26/19 04:01: PT 14.0, INR 1.1, APTT 30.9 03/26/19 04:01: Sodium 140, Potassium 3.6, Chloride 107, Carbon Dioxide 25.0, Anion Gap 8, BUN 11, Creatinine 0.56, Estim Creat Clear Calc 45.20, Est GFR (MDRD) Af Amer 137, Est GFR (MDRD) Non-Af 113, BUN/Creatinine Ratio 19.6, Glucose 86, Calcium 8.4 L 03/26/19 04:01: Troponin I < 0.015 03/26/19 06:50: Troponin I < 0.015 03/26/19 13:15: Fluid Glucose 66, Fluid LDH 551 03/26/19 13:15: Fluid pH Pending 03/26/19 13:15: Fluid Total Protein 5.1 03/26/19 13:15: Fluid Source Pending, Fluid Color Pending, Fluid Appearance Pending, Fluid WBC Pending, Fluid RBC Pending, Fluid Tot Cell Count Pending, Fl Pathologist Comment Pending, Fluid Comment 2 Pending 03/26/19 13:15: Miscellaneous Cytology Pending Diagnostic Data Chest CTA 03/25/19 16:57 IMPRESSION: 1. No evidence of pulmonary embolus. 2. No aortic dissection or aneurysm. 3. Large left pleural effusion and with lingular and lower lobe atelectasis. 4. Patchy infiltrate in the left upper lobe. 5. Multiple nodular densities throughout the right lung with small pleural effusion. 6. Linear array of sclerosis along the left 10th rib of uncertain important etiology. No other evidence of sclerotic or lytic lesions are seen. Electronically Signed: Kd Nieves DO at 18:50 EST Tel [phone], Service support , Chest X-Ray 03/26/19 13:00 IMPRESSION: Status post left thoracentesis. There is no evidence of pneumothorax. Electronically Signed: Modesto Meade, at 14:27 EST , Service support , Thoracentesis Ultrasound 03/26/19 19:06 IMPRESSION: Ultrasound-guided left thoracentesis. Electronically Signed: Modesto Meade, at 13:50 EST , Service support , Current Medications Acetaminophen (Tylenol) 650 mg PO Q6H PRN PRN PRN Reason: Non-cardiac pain (mod-severe) Al Hydroxide/Mg Hydroxide (Mylanta Ii) 15 - 30 ml PO Q4H PRN PRN PRN Reason: INDIGESTION Albuterol Sulfate (Ventolin Aerosols) 2.5 mg INHALATION Q2H PRN PRN PRN Reason: dyspnea, wheezing Albuterol/Ipratropium (Duoneb) 3 ml INHALATION Q6HWA.RT MARQUISE Last Admin: 03/26/19 13:08 Dose: Not Given Documented by: Cholecalciferol (Vitamin D) 2,000 unit PO DAILY MARQUISE Last Admin: 03/26/19 09:40 Dose: 2,000 unit Documented by: Dextrose (D50w Syringe) 0 gm IV X1 PRN; Protocol PRN Reason: Hypoglycemia Enoxaparin Sodium (Lovenox) 40 mg SC DAILY@1000 [facility] Last Admin: 03/26/19 07:51 Dose: Not Given Documented by: Glucagon () 1 mg IM .X1 PRN PRN Reason: Hypoglycemia Heparin Sodium (Beef Lung) () 50 units IV UD PRN PRN Reason: R Port Heparin Flush Hydralazine HCl (Apresoline Iv) 10 mg IV Q4H PRN PRN PRN Reason: SBP > 160 Sodium Chloride () 1,000 mls @ 125 mls/hr IV .Q8H [facility] Last Admin: 03/26/19 13:38 Dose: 125 mls/hr Documented by: Sodium Chloride () 250 mls @ 15 mls/hr IV .[id number] PRN PRN Reason: Saline Flush Lisinopril (Zestril) 20 mg PO DAILY [facility] Last Admin: 03/26/19 09:40 Dose: 20 mg Documented by: Magnesium Hydroxide (Milk Of Magnesia) 30 ml PO DAILY PRN PRN Reason: Constipation Metoprolol Tartrate (Lopressor (Beta Gregorio)) 25 mg PO BID [facility] Last Admin: 03/26/19 09:40 Dose: 25 mg Documented by: Morphine Sulfate () 1 - 2 mg IV Q4H PRN PRN PRN Reason: Pain Score 1-10/10 Nitroglycerin (Nitrostat) 0.4 mg SUBLINGUAL Q5M PRN PRN Reason: CARDIAC/CHEST PAIN Ondansetron HCl (Zofran) 4 mg IV Q8H PRN PRN PRN Reason: NAUSEA/VOMITING Last Admin: 03/26/19 13:35 Dose: 4 mg Documented by: Sodium Chloride () 10 - 40 ml IV UD PRN PRN Reason: R Port Saline Flush Last Admin: 03/26/19 13:35 Dose: 10 ml Documented by: Sodium Chloride (0.9% Nacl (Sterile) Posiflush) 10 - 40 ml IV UD PRN PRN Reason: Port access or dressing change Temazepam (Restoril) 15 mg PO QHS PRN PRN PRN Reason: INSOMNIA STROKE Vital Signs/Narrative: Vital Signs Temp Pulse Pulse Pulse Pulse Pulse Pulse 03/26/19 13:32 97.9 F 67 03/26/19 12:44 77 77 81 71 67 Resp Resp Resp Resp Resp Resp BP 03/26/19 13:32 18 123/78 H 03/26/19 12:44 18 18 18 24 H 16 BP BP BP BP BP Pulse Ox 03/26/19 13:32 96 03/26/19 12:44 174/63 H 175/85 H 146/80 H 138/80 H 115/55 L Medical Necessity - Tobacco Use Smoking Status: Never smoker Tobacco Use: Non-smoker Assessment/Plan All Active Problems Hypoxia (Acute) Exertional dyspnea (Acute) Lung cancer (Acute) Pleural effusion (Acute) Cellulitis (Ruled-out) Pneumonia (Ruled-out) Fever (Acute) CAP (community acquired pneumonia) (Ruled-out) C. difficile diarrhea (Acute) 1. Left pleural effusion, likely malignant CTA chest showed large left sided pleural effusion, with no evidence of PE, as well as patchy infiltrate in left upper lobe and multiple nodular densities throughout the right lung with small pleural effusioin. in light of her history of metastatic breast cancer, effusion is likely malignant to have thoracentesis today discussed with patient's primary oncologist, Dr Rhonda Fallon- she had planned to have pleurex catheter inserted for patient, but patient refused to go down to [place] yesterday when shortness of breath started. Dr Fallon faxed over patient's records, which show patient has metastatic Her-2/salina positive breast cancer with significant chest wall involvement and inflammatory breast cancer, currently on Herceptin and Eribulin for chemotherapy. has had breast cancer for the past 9 years patient doesnt want to follow up here, and wishes to go back to [place] to follow with primary oncologist had ~ 1400cc of dark red fluid drained during thoracentesis today. Not all oft he fluid was removed as she became nauseous and had chest pain during process continue gentle hydration. to follow up with [place] upon discharge. 2. Metastatic breast cancer: as under 1 3. Acute hypoxic respiratory insufficiency due to left pleural effusion requiring 2L of oxygen thoracentesis should help with shortness of breath to wean off oxygen, and maintain sats >90% give breathing treatments 4. Hypertension: on metoprolol and lisinopril. Controlled. DVT prophylaxis: on lovenox Code Visit OBSV E&M: 19319 Subsequent observation care L3
[2019-03-26 14:47] LABS: Body Fluid Mononuclear WBC # 0.639 10^3/uL; Body Fluid Mononuclear WBC % 89.6 %; Body Fluid Polynuclear WBC # 0.074 10^3/uL; Body Fluid Polynuclear WBC % 10.4 %; Body Fluid Total Cells Counted 0.756 10^3/ul; Red Cell Count/Body Fluid 0.109 10^6/ul; White Blood Count/Body Fluid 0.713 10^3/uL
[2019-03-26 14:53] LABS: Appearance/Body Fluid SL CLDY; Auto B Fluid Analyzer BKGD Ct COUNTS W/IN LIMITS (W/IN LIMITS); Color/Body Fluid RED; Source- Body Fluid THORACENTESIS
[2019-03-26] MEDS: Acetaminophen 325 MG Tablet 650 MG PO (15:00)
[2019-03-26 15:22] LABS: Lymphocytes 68 %; Monocytes 20 %; Neutrophil (Segs) 10 %
[2019-03-26 15:23] LABS: Body Fluid QC Type(s) BF1Q; Mesothelial Cells 2 %
--- NOTE | 2019-03-26 19:06 | US_ITS ---
PROCEDURE: ULTRASOUND GUIDED THORACENTESIS. DATE: March 26, 2019. INDICATION: Female, 68 years old. Left pleural effusion. PHYSICIAN: Modesto Meade M.D. PROCEDURE: The risks, benefits, and alternatives to the procedure were explained to the patient. The specific risks of bleeding, infection, and pneumothorax requiring chest tube insertion were discussed and accepted. Written informed consent was obtained. Ultrasonographic evaluation of the left lower pleural space was carried out. An adequate pocket was identified. The patient was placed in the sitting, upright position. The overlying skin was prepped and draped in sterile fashion. 1% lidocaine was administered subcutaneously for local anesthesia. Under ultrasound guidance, a 5 Telugu thoracentesis needle/catheter system was advanced into the left posterior lower pleural fluid collection. Approximately 1450 mL of bloody fluid was drained. The catheter was removed, and a sterile dressing was applied. A specimen was collected and sent to the laboratory for analysis, as requested by the referring clinician. The patient tolerated the procedure well. A chest x-ray was ordered. US/Thoracentesis W US IMPRESSION: Ultrasound-guided left thoracentesis. Electronically Signed: Modesto Meade, at 13:50 EST , Service support ,
[2019-03-27] VITALS (10 sets, daily range): BP systolic 137–139; BP diastolic 63–76; PULSE 70–89; RESP 18–19; TEMP 36.6–37; O2SAT 87–96
[2019-03-27] MEDS: 0.9% Saline Lock 10 ML Syringe IV ×2 (05:40→05:42)
[2019-03-27 05:55] LABS: Absolute Lymphocyte Count 0.72 X10^3/uL (0.83-4.51); Absolute Neutrophil Count 1.2 X10^3/uL (2.0-7.7); Basophil# 0.02 X10^3/uL; Basophil% 0.7 % (0-1); Eosinophil# 0.09 X10^3/uL; Eosinophils% 3.1 % (0-5); Hematocrit 34.1 % (37-47); Hemoglobin 10.9 g/dL (12.0-15.0); Lymphocyte # 0.72 X10^3/ul (4.0); Lymphocyte % 24.7 % (19-41); Mean Corpuscular Hgb 28.7 pg (27.0-32.0); Mean Corpuscular Volume 89.7 fL (81-99); Mean Platelet Vol. 9.6 fl (6.2-12.0); Monocyte# 0.89 X10^3/uL; Monocyte% 30.6 % (0-10); NRBC Flagged by Analyzer 0 % (0-5); Neutrophil # 1.18 X10^3/uL (2.7-7.7); Neutrophil % 40.6 % (47-70); Platelet Count 211 K/mm3 (150-450); RBC Distribution Width CV 15.9 % (11.6-14.6); RBC Distribution Width SD 51.8 fl (35.1-43.9); White Blood Count 2.9 K/mm3 (4.4-11.0)
[2019-03-27] MEDS: 0.9% Normal Saline 1,000 ML 125 ML IV (05:57)
[2019-03-27 06:03] LABS: Anion Gap 6 (5-15); BUN 10 mg/dL (7-18); BUN/Creat Ratio 17.5 RATIO (10-20); Calcium,Total 7.8 mg/dL (8.5-10.1); Chloride 109 mmol/L (98-107); Creatinine, Serum 0.57 mg/dL (0.55-1.02); EST Glomerular Filtration Rate 111 mL/min (>60); Est Glom Filt Rate - Afr Amer 135 mL/min (>60); Glucose 78 mg/dL (74-106); Sodium Level 141 mmol/L (136-145)
[2019-03-27] MEDS: Ipratropium/Albuterol Sulfate 3 ML AMPUL.NEB INHALATION ×2 (07:23→12:59)
[2019-03-27] MEDS: Metoprolol Tartrate 25 MG Tablet PO (08:20)
[2019-03-27] MEDS: Lisinopril 20 MG Tablet PO (08:20)
--- NOTE | 2019-03-27 10:04 | DCINST_ITS ---
- Discharge Diagnoses Current Active Problems: Current Active and Chronic Problems Hypoxia (Acute) Exertional dyspnea (Acute) Lung cancer (Acute) Pleural effusion (Acute) Breast cancer (Chronic) Thrombocytopenia (Chronic) You will use the following diet at home:: Cardiac Your food should be the consistency of: Regular Your liquids should be the consistency of: Regular/Thin Discharge Activity: Return to Normal Activity Weight Bearing Status: Weight bearing as tolerated Call your doctor if you observe: Fever of 101 or Higher, Shortness of breath, Swelling in the ankles, Increased palpitations (irregular heartbeat) Instructions: Pleural Effusion Allergies/Adverse Reactions: Allergies amoxicillin Allergy (Verified 03/25/19 16:38) Rash clavulanic acid Allergy (Verified 03/25/19 16:38) Rash Medications to take at Discharge Vit B Comp No.3/Folic/C/Biotin [Tobacco Stripper Hand-Yayo Rx Tablet] 1 tab PO DAILY 04/07/17 Cholecalciferol (Vitamin D3) [Vitamin D3] 2,000 unit PO DAILY 03/25/19 Lactobacillus Combo No.10 [Probiotic] 1 cap PO DAILY 03/25/19 Metoprolol Tartrate [Lopressor (beta humberto)] 25 mg PO DAILY 03/25/19 Multivitamin with Minerals [Multiple Vitamin] 1 tab PO DAILY 03/25/19 Turmeric Root Extract [Turmeric] 500 mg PO DAILY 03/25/19 Ubidecarenone [Co Q-10] 200 mg PO DAILY 03/25/19 Primary Care Physician: Jatin Estrada MD [Primary Care Provider] - Please follow up with your Primary Care Physician in: one week Test Results: Test results from this visit will be discussed in further detail at your follow- up appointment, if applicable. When: oncologist- Dr Rhonda Fallon, in [place] in one week Proposed Discharge Date: 03/27/19
--- NOTE | 2019-03-27 10:30 | DS.PCM_ITS ---
Discharge Date and Diagnosis Date of Admission: 03/25/19 Date of Discharge: 03/27/19 - Primary Discharge Diagnosis Active and Suspected Problems Hypoxia (Acute) Exertional dyspnea (Acute) Lung cancer (Acute) Pleural effusion (Acute) acute hypoxic respiratory insufficiency - Secondary Discharge Diagnosis Chronic Problems Breast cancer (Chronic) Hypertension (Chronic) Heart murmur, systolic (Chronic) Suspect aortic valve murmur Thrombocytopenia (Chronic) Hospital Course and Treatment Imaging Results: Diagnostic Data Chest CTA 03/25/19 16:57 IMPRESSION: 1. No evidence of pulmonary embolus. 2. No aortic dissection or aneurysm. 3. Large left pleural effusion and with lingular and lower lobe atelectasis. 4. Patchy infiltrate in the left upper lobe. 5. Multiple nodular densities throughout the right lung with small pleural effusion. 6. Linear array of sclerosis along the left 10th rib of uncertain important etiology. No other evidence of sclerotic or lytic lesions are seen. Electronically Signed: Kd Nieves DO at 18:50 EST Tel [phone], Service support , Chest X-Ray 03/26/19 13:00 IMPRESSION: Status post left thoracentesis. There is no evidence of pneumothorax. Electronically Signed: Modesto Meade, at 14:27 EST , Service support , Thoracentesis Ultrasound 03/26/19 19:06 IMPRESSION: Ultrasound-guided left thoracentesis. Electronically Signed: Modesto Meade, at 13:50 EST , Service support , Operations: None Procedures: Thoracentesis Summary of Care Provided: The patient is a 68 year old F with past medical history as listed which includes breast cancer diagnosed 9 years ago for which she had been having treatment at [facility] in [place]. She was admitted to the ED on 03/25/2019 with a complaint of progressively worsening shortness of breath which especially worsened with exertion. She also had an associated dry cough which was unchanged from previously. She had no associated fever or chills. CT under Nam done in the ED was negative for PE but showed a large left-sided pleural effusion. During admission, patient has stated that she would have wanted to go down in [place] for thoracentesis to be done but was agreeable to stay in a [facility] for procedure to be done. However she did not want to follow-up in 1 to to follow-up with her oncologist Dr. Fallon in [place]. Hospitalist discussed patient's case with her primary oncologist Dr. Fallon down in [place]. Patient had thoracentesis on 03/26/2019 with drainage of about 1.5 L of red-tinged fluid. All the fluid could not be removed as patient became nauseous and started having chest pain during procedure. Symptoms however resolved when thoracentesis was stopped. Patient had been on 2 L of oxygen was successfully weaned off of oxygen after thoracentesis. However with ambulation, patient qualified for oxygen as a saturation was 87% on room air with ambulation. However patient refused home oxygen as she said he wanted to remain active and she felt that having a home oxygen tank with limited her ability to be active and independent. Despite reassurances that he quit until active lifestyle, patient absolutely refused and stated that she wanted to follow-up with her oncologist and discuss with her sons done in [place] so that she could follow-up with the die set up worker there as needed. Patient was counseled that by discussion hospital is had with Dr. Fallon, plan was for patient to have a Pleurx catheter inserted in the pleural space once pleural effusion reaccumulated as it was likely malignant. Patient was discharged home on 03/27/2019 and is to follow-up with her primary care doctor and with her oncologist in 1 week. Patient seen and examined prior to discharge patient felt much better loss of oxygen. She had no complaints. Nausea and vomiting have resolved. Review of systems otherwise negative. Labs and vitals reviewed. Home medications reviewed and reconciled. o/e: Vital Signs Height 5 ft 4 in Weight: 125 lb 14.143 oz Weight in Pounds 125.9 lbs Pulse Ox [AMBULATING on Room 87 Air] Pulse Ox [At REST on Room Air] 93 Pulse Ox 96 Temperature 98.6 F Pulse Rate [5] 67 Pulse Rate [4] 71 Pulse Rate [3] 81 Pulse Rate [2] 77 Pulse Rate [1 (Initial 77 Baseline)] Pulse Rate 84 Respiratory Rate [5] 16 Respiratory Rate [4] 24 Respiratory Rate [3] 18 Respiratory Rate [2] 18 Respiratory Rate [1 (Initial 18 Baseline)] Respiratory Rate 18 Blood Pressure [BP] 174/84 Blood Pressure [5] 115/55 Blood Pressure [4] 138/80 Blood Pressure [3] 146/80 Blood Pressure [2] 175/85 Blood Pressure [1 (Initial 174/63 Baseline)] Blood Pressure 139/65 Blood Pressure Position [BP] Semi-Fowlers Blood Pressure Position Sitting [] General: Alert, Oriented x3, Cooperative, No apparent distress HEENT: Atraumatic, PERRLA, EOMI, Normocephalic Oral: Dry Mucosa Neck: Supple, No JVD, Negative Carotid Bruits, Negative Hepatojugular Reflux, No Nodes Lungs: - - Decreased breath sounds bibasally and in mid lung mars. No wheezes or crackles. Cardiovascular: Regular rate, Regular Rhythm, Normal S1, Normal S2, No murmurs Abdomen: Bowel Sounds Present, Soft, Non Tender, Non-Distended, No Hepato- splenomegaly Extremities: No clubbing, No cyanosis, No edema, Capillary Refill Less than 3 Seconds Skin: No rashes, No breakdown Musculoskeletal: No Tenderness to Palpation of Joints or Extremities, - - has right sided chemotherapy port in place on chest Lymphatic: No Cervical, Supraclavicular, or Inguinal Adenopathy Neurological: Cranial nerves II-XII grossly intact, Neuro grossly intact, Motor Exam 5/5 strength throughout Plan as above. - Physical Exam Vitals/I&O's: Vital Signs Temp Pulse Resp BP Pulse Ox 97.9 F 89 18 137/63 H 92 03/27/19 08:23 03/27/19 08:23 03/27/19 08:23 03/27/19 08:23 03/27/19 09:18 Oxygen Flow Rate (L/min) [5] 2 Oxygen Flow Rate (L/min) [4] 2 Oxygen Flow Rate (L/min) [3] 2 Oxygen Flow Rate (L/min) [2] 2 Oxygen Flow Rate (L/min) [1 ( 2 Initial Baseline)] Oxygen Flow Rate (L/min) 1 Oxygen Delivery Method [5] Nasal Cannula Oxygen Delivery Method [4] Nasal Cannula Oxygen Delivery Method [3] Nasal Cannula Oxygen Delivery Method [2] Nasal Cannula Oxygen Delivery Method [1 ( Nasal Cannula Initial Baseline)] Oxygen Delivery Method Room Air Weight: 125 lb 14.143 oz Body Mass Index (BMI) 21.6 Intake and Output for Last 24 Hours 03/25/19 03/26/19 03/27/19 23:59 23:59 23:59 Intake Total 1000 / 1000 3946.67 / 3946.67 1360 / 1360 Balance 1000 / 1000 3946.67 / 3946.67 1360 / 1360 Microbiology Past 72 Hours 03/26/19 13:15 Fluid - Thoracentesis Fluid Gram Stain - Final Laboratory Results 03/26/19 13:15: Fluid Glucose 66, Fluid LDH 551 03/26/19 13:15: Fluid pH Pending 03/26/19 13:15: Fluid Total Protein 5.1 03/26/19 13:15: Fluid Source THORACENTESIS, Fluid Color RED, Fluid Appearance SL CLDY, Fluid WBC 0.713, Fluid RBC 0.109, Fluid Tot Cell Count 0.756 H, Fld Polynuclear WBCs # 0.074, Fld Polynuclear WBCs % 10.4, Fluid Mononuclear WBCs 0.639, Fld Mononuclear WBCs % 89.6, Fluid Neutrophils 10, Fluid Lymphocytes 68, Fluid Monocytes 20, Fld Mesothelial Cells 2, Fl Pathologist Comment May follow, Fluid Comment 2 SEE COMMENT 03/26/19 13:15: Miscellaneous Cytology Pending 03/27/19 05:35: WBC 2.9 L, RBC 3.80 L, Hgb 10.9 L, Hct 34.1 L, MCV 89.7, MCH 28.7, MCHC 32.0, RDW Std Deviation 51.8 H, RDW Coeff of Justice 15.9 H, Plt Count 211, MPV 9.6, Immature Gran % (Auto) 0.300, Neut % (Auto) 40.6 L, Lymph % (Auto) 24.7, Screven % (Auto) 30.6 H, Eos % (Auto) 3.1, Baso % (Auto) 0.7, Absolute Neuts (auto) 1.2 L, Absolute Lymphs (auto) 0.72 L, Nucleated RBC % 0 03/27/19 05:35: Sodium 141, Potassium 4.0, Chloride 109 H, Carbon Dioxide 26.0, Anion Gap 6, BUN 10, Creatinine 0.57, Estim Creat Clear Calc 45.20, Est GFR (MDRD) Af Amer 135, Est GFR (MDRD) Non-Af 111, BUN/Creatinine Ratio 17.5, Glucose 78, Calcium 7.8 L Current Medications Acetaminophen (Tylenol) 650 mg PO Q6H PRN PRN PRN Reason: Non-cardiac pain (mod-severe) Last Admin: 03/26/19 15:00 Dose: 650 mg Documented by: Al Hydroxide/Mg Hydroxide (Mylanta Ii) 15 - 30 ml PO Q4H PRN PRN PRN Reason: INDIGESTION Albuterol Sulfate (Ventolin Aerosols) 2.5 mg INHALATION Q2H PRN PRN PRN Reason: dyspnea, wheezing Albuterol/Ipratropium (Duoneb) 3 ml INHALATION Q6HWA.RT [facility] Last Admin: 03/27/19 07:23 Dose: 3 ml Documented by: Cholecalciferol (Vitamin D) 2,000 unit PO DAILY [facility] Last Admin: 03/27/19 08:20 Dose: 2,000 unit Documented by: Dextrose (D50w Syringe) 0 gm IV X1 PRN; Protocol PRN Reason: Hypoglycemia Enoxaparin Sodium (Lovenox) 40 mg SC DAILY@1000 [facility]QU[facility] Last Admin: 03/27/19 08:20 Dose: Not Given Documented by: Glucagon () 1 mg IM .X1 PRN PRN Reason: Hypoglycemia Heparin Sodium (Beef Lung) () 50 units IV UD PRN PRN Reason: R Port Heparin Flush Hydralazine HCl (Apresoline Iv) 10 mg IV Q4H PRN PRN PRN Reason: SBP > 160 Sodium Chloride () 1,000 mls @ 125 mls/hr IV .Q8H [facility] Last Admin: 03/27/19 05:57 Dose: 125 mls/hr Documented by: Sodium Chloride () 250 mls @ 15 mls/hr IV .[id number] PRN PRN Reason: Saline Flush Lisinopril (Zestril) 20 mg PO DAILY [facility] Last Admin: 03/27/19 08:20 Dose: 20 mg Documented by: Magnesium Hydroxide (Milk Of Magnesia) 30 ml PO DAILY PRN PRN Reason: Constipation Metoprolol Tartrate (Lopressor (Beta Gregorio)) 25 mg PO BID [facility] Last Admin: 03/27/19 08:20 Dose: 25 mg Documented by: Morphine Sulfate () 1 - 2 mg IV Q4H PRN PRN PRN Reason: Pain Score 1-10/10 Nitroglycerin (Nitrostat) 0.4 mg SUBLINGUAL Q5M PRN PRN Reason: CARDIAC/CHEST PAIN Ondansetron HCl (Zofran) 4 mg IV Q8H PRN PRN PRN Reason: NAUSEA/VOMITING Last Admin: 03/26/19 13:35 Dose: 4 mg Documented by: Sodium Chloride () 10 - 40 ml IV UD PRN PRN Reason: R Port Saline Flush Last Admin: 03/27/19 05:42 Dose: 10 ml Documented by: Sodium Chloride (0.9% Nacl (Sterile) Posiflush) 10 - 40 ml IV UD PRN PRN Reason: Port access or dressing change Temazepam (Restoril) 15 mg PO QHS PRN PRN PRN Reason: INSOMNIA Discharge Diet: Low fat/ Low Cholesterol Discharge Activity: Return to Normal Activity Weight Bearing Status: Weight bearing as tolerated Call your doctor if you observe: Fever of 101 or Higher, Shortness of breath, Swelling in the ankles, Increased palpitations (irregular heartbeat) Home Medications: Medications to take at Discharge Vit B Comp No.3/Folic/C/Biotin [Bacteriologist Soil-Yayo Rx Tablet] 1 tab PO DAILY 04/07/17 Cholecalciferol (Vitamin D3) [Vitamin D3] 2,000 unit PO DAILY 03/25/19 Lactobacillus Combo No.10 [Probiotic] 1 cap PO DAILY 03/25/19 Metoprolol Tartrate [Lopressor (beta gregorio)] 25 mg PO DAILY 03/25/19 Multivitamin with Minerals [Multiple Vitamin] 1 tab PO DAILY 03/25/19 Turmeric Root Extract [Turmeric] 500 mg PO DAILY 03/25/19 Ubidecarenone [Co Q-10] 200 mg PO DAILY 03/25/19 Primary Care Physician: Jatin Estrada MD [Primary Care Provider] - Please follow up with your Primary Care Physician in: one week When: oncologist- Dr Rhonda Fallon, in [place] in one week Patient Instructions: Pleural Effusion Disposition: Home Minutes spent on discharge:: 45 Patient Condition:: Stable Medical Necessity - Tobacco Use Smoking Status: Never smoker Tobacco Use: Non-smoker Meaningful Use Info Meaningful Use Diagnoses (Choose all that apply): None applicable Code Visit OBSV E&M: 65113 Observation care discharge
--- NOTE | 2019-03-27 11:23 | PHA.DC.MR ---
Pharmacy Service has performed discharge medication reconciliation for this patient. No new medications at time of discharge, medications reviewed are from previously reported home medications. The patient's discharge medication list was reviewed for discrepancies and discrepancies were resolved. Home Medications Vit B Comp No.3/Folic/C/Biotin [Window Systems Administrator-Yayo Rx Tablet] 1 tab PO DAILY 04/07/17 Cholecalciferol (Vitamin D3) [Vitamin D3] 2,000 unit PO DAILY 03/25/19 Lactobacillus Combo No.10 [Probiotic] 1 cap PO DAILY 03/25/19 Metoprolol Tartrate [Lopressor (beta humberto)] 25 mg PO DAILY 03/25/19 Multivitamin with Minerals [Multiple Vitamin] 1 tab PO DAILY 03/25/19 Turmeric Root Extract [Turmeric] 500 mg PO DAILY 03/25/19 Ubidecarenone [Co Q-10] 200 mg PO DAILY 03/25/19
--- NOTE | 2019-03-27 11:39 | CASEMGMT ---
Addendum entered by Stephanie Cottrell 03/27/19 15:15: Per Vianey OWENS, pt officially declined home oxygen at discharge. Miguelangel RN SHUN Addendum entered by Stephanie Cottrell 03/27/19 13:20: This RN CM back to room multiple times regarding decision for home oxygen and pt states does not want to go home with oxygen but then states that her oncology office told her to get it. Pt cannot make final decision but then states 'I really don't think I am going to need it.' Pt is aware that it's her choice whether she wants it or not but is recommended at this time, voice understanding. Pt states that she called one son and he is undecided then states her 'caring son' is on a plane to [place] right now and she is not able to speak with him. Pt states that she is planning to head back to [place] next saturday. Pt has a son here in [place] and then two sons in [place] and she stays with on of them while there getting treatment. Pt also placed a call to surgical asst in [place] but states she forgot to ask them their opinion regarding need for home oxygen. This RN CM discussed with Vianey OWENS and she states will re-check pt's oxygen level later. Vianey OWENS states that pt cannot make up her mind with her either. Pt states that she plans on driving herself home. Miguelangel RN CM Addendum entered by Stephanie Cottrell 03/27/19 11:47: Per Vianey OWENS, pt does qualify for home oxygen at this time and this RN CM discussed with pt at this time but she is not really sure that she wants to go home with oxygen at this time. Pt states that she would like to talk to her sons and oncology/pulm in [place] before deciding at this time. Pt is on room air at rest and in no distress at this time. This RN CM to check with pt later regarding same. Miguelangel OWENS CM Original Note: This RN CM to room with NORRIS form at this time, explanation done-pt voices understanding, and signs NORRIS form at this time. Original to chart and copy to pt at this time. Pt provided with CMS IP vs OBS booklet at this time as this RN CM cannot find that pt has a copy in her room at this time. Pt voices no further questions/concerns/needs at this time. SStaten RN CM
[2019-03-27 13:40] LABS: Pathologist Comment/Body Fluid Reviewed
[2019-03-30 16:23] LABS: pH, Body Fluid 11254 7.5 (Not Estab.)
== END 2019-03-27 10:29 | disposition home or self-care (01) ==
LOC: ED 18:42 → PCU 19:04
PROVIDERS: Admitting Provider Family Medicine; Emergency Provider Physician Assistant Medical; Family Provider Family Medicine; PCP Family Medicine; Referring Provider Family Medicine; Visit Provider Student in an Organized Health Care Education/Training Program
DX: C34.90 Malignant neoplasm of unspecified part of unspecified bronchus or lung (principal); J91.0 Malignant pleural effusion; I10 Essential (primary) hypertension; R01.1 Cardiac murmur, unspecified; D69.6 Thrombocytopenia, unspecified; Z85.3 Personal history of malignant neoplasm of breast; Z79.899 Other long term (current) drug therapy; R09.02 Hypoxemia
CPT/HCPCS: 32555; 36415; 36591; 71046; 71275; 80048; 82945; 83615; 83735; 83986; 84100; 84156; 84157; 84484; 85025; 85610; 85730; 87070; 87075; 87205; 88108; 88305; 88313; 88341; 88342; 89050; 93005; 94640; 96361; 96374; 96375; 97162; 97166; 97530; 97802; 99218; 99285; J7030; Q9967; A4216; G0378; J2405